=== PATIENT | male | born 1965 | race Caucasian/White ===

== ENCOUNTER 2024-04-24 06:42 | Day surgery (SDC) | payer BC, SELFPAY ==
--- NOTE | 2024-04-24 07:13 | SUR.PREOP ---
Patient arrived in waiting room prepped for colonoscopy but was not scheduled today. Orginally scheduled for May 08. Insurance is being approved and then we will proceed with procedure.
[2024-04-24 07:32] VITALS: BMI 29.9
[2024-04-24 07:35] VITALS: BP 138/108; PULSE 72; RESP 18; TEMP 36.2; O2SAT 100
[2024-04-24] MEDS: LACTATED RINGERS 1,000 ML 150 ML IV CONT (07:44)
--- NOTE | 2024-04-24 07:51 | WPDANESEPPF ---
Anes - Initial Pre Proc Eval Procedure: Operation Date: 04/24/24 15:30 Proposed Procedures p Colonoscopy - Eron Joyner MD Date/Time: 04/24/24 07:51 Surgeon: Eron Joyner MD Pre Op Diagnosis: Personal history colon polyps Patient Data Age: 58 Gender: M Height: 1.83 m Weight: 100.2 kg Last Vital Signs Temp 97.2 F L 04/24/24 07:35 Pulse 72 04/24/24 07:35 Resp 18 04/24/24 07:35 BP 138/108 H 04/24/24 07:35 Pulse Ox 100 04/24/24 07:35 O2 Del Method Room Air 04/24/24 07:35 Allergies Allergy/AdvReac Type Severity Reaction Status Date / Time No Known Allergies Allergy Verified 04/24/24 07:34 Home Medications Medication Instructions Recorded Confirmed Type allopurinol 300 mg tablet 300 mg PO DAILY 04/24/24 04/24/24 History glucosamine sulfate 500 mg tablet 500 mg PO DAILY 04/24/24 04/24/24 History (Glucosamine) multivit with minerals-iron 18 1 tablet PO DAILY 04/24/24 04/24/24 History mg-folic ac 400 mcg-vit K 25 mcg tablet (Adults Multivitamin) omega-3 fatty acids 1,000 mg PO DAILY 04/24/24 04/24/24 History Patient hx anesthesia problems: none Family hx anesthesia problems: none Results Review: All pre-operative results and documents have been reviewed as part of the pre-operative evaluation. [facility] Social History Social History Smoking status: Never smoker Alcohol intake: current Drinks per week: 14 Substance use type: does not use Living arrangements: with family Spiritual care concerns: No Anes - Eval Final PreProcedure Day of Procedure 04/24/24 07:51 Patient weight: overweight Heart: regular rate and rhythm Lungs: clear to auscultation Airway: Mallampati scale class II Neurological: alert and oriented Last oral intake: >/= 8 hours ASA classification: II Emergent: no Anesthetic plan: proceed Anesthesia type and monitoring: general GIVS and standard monitoring Results Review: All pre-operative results and documents have been reviewed as part of the pre-operative evaluation. Pt w gout, active, lifts wts several times weekly, no cp or sob. ETOH use, 2 drinks/day. Informed Consent: The patient's anesthetic plan and its attendant risks and benefits were discussed with the patient/family/POA. Questions were solicited and answers provided to the satisfaction of the patient/family/POA.
--- NOTE | 2024-04-24 08:29 | PM.HPGS ---
History of Present Illness History of Present Illness Consent: Risks, benefits, and alternatives have been discussed and questions answered. Patient agrees to proceed with procedure. Chief complaint: Personal history colon polyps Narrative: Jonel Mo is a 58 year old male with h/o colon polyp Review of Systems Review of Systems: All systems reviewed & are unremarkable except as noted in HPI and below PMFSH Past Medical History Medical History (Updated 04/24/24 @ 08:31 by Eron Joyner MD) Adenomatous colon polyp Social History Social History Smoking status: Never smoker Alcohol intake: current Drinks per week: 14 Substance use type: does not use Living arrangements: with family Spiritual care concerns: No Meds Home Medications and Allergies Home Medications Medication Instructions Recorded Confirmed Type allopurinol 300 mg tablet 300 mg PO DAILY 04/24/24 04/24/24 History glucosamine sulfate 500 mg tablet 500 mg PO DAILY 04/24/24 04/24/24 History (Glucosamine) multivit with minerals-iron 18 1 tablet PO DAILY 04/24/24 04/24/24 History mg-folic ac 400 mcg-vit K 25 mcg tablet (Adults Multivitamin) omega-3 fatty acids 1,000 mg PO DAILY 04/24/24 04/24/24 History Allergies Allergy/AdvReac Type Severity Reaction Status Date / Time No Known Allergies Allergy Verified 04/24/24 07:34 Vital Signs Vital Signs - 24 hr 04/24/24 07:35 Temperature 97.2 F L Pulse Rate 72 Respiratory Rate 18 Blood Pressure 138/108 H Pulse Oximetry 100 Oxygen Delivery Room Air Exam Const: General: comfortable and no acute distress HENMT: Face/Nose/Sinus: Normal nares present Eyes: General: appearance normal, both eyes and all related structures Neck: Neck: no JVD Resp: Auscultation: clear to auscultation bilaterally Cardio: Rate: regular rate Rhythm: regular rhythm GI: Inspection: non-distended GI Palp: Yes Soft to palpation Skin: General skin exam: normal color Neuro: General: gait normal Speech: normal speech Extrem: General: normal to inspection Psych: Mental Status: mental status grossly normal Assessment and Plan Assessment and plan (1) Adenomatous colon polyp: Code(s): D12.6 - Benign neoplasm of colon, unspecified Status: Acute Assessment and Plan: colonoscopy
[2024-04-24 08:45] VITALS: BP 129/85; PULSE 85; RESP 22; O2SAT 95
[2024-04-24 08:55] VITALS: BP 147/94; PULSE 79; RESP 19; O2SAT 98
[2024-04-24 09:05] VITALS: BP 134/96; PULSE 74; RESP 20; O2SAT 98
== END 2024-04-24 09:13 | disposition home or self-care (01) ==
PROVIDERS: PCP Family Medicine; Visit Provider Internal Medicine Gastroenterology
PROC: 0DJD8ZZ Inspection of Lower Intestinal Tract, Via Natural or Artificial Opening Endoscopic (ICD-10-PCS; CPT 45378; principal; 2024-04-24 15:30)
DX: Z12.11 Encounter for screening for malignant neoplasm of colon (principal); D12.3 Benign neoplasm of transverse colon; D12.4 Benign neoplasm of descending colon; D12.8 Benign neoplasm of rectum; K64.8 Other hemorrhoids
CPT/HCPCS: 45385; 88305; J2704; J7120